=== PATIENT | female | born 1990 | race Caucasian/White ===

== ENCOUNTER 2021-02-12 11:45 | Emergency (ER) | payer OTHER ==
[~2021-02-12] VITALS: Ht 160 cm; Wt 66.2 kg
[2021-02-12 11:48] VITALS: BP 136/78
--- NOTE | 2021-02-12 11:50 | NUR ---
Patient ambulated to bed 12. RN evaluating the patient at bedside.
--- NOTE | 2021-02-12 11:55 | NUR ---
EMT at bedside for wound irrigation
--- NOTE | 2021-02-12 11:55 | NUR ---
31 y/o F brought in from the gym by mother with c/c right 5th digit finger pain. Patient reports she smashed her right 5th digit between a hyperextension machine and a 70lb dumbbell. Patient reports EMS was called out and bleeding controlled by gauze pad/roll by fire prior to arrival. Patient denies any medications prior to arrival. 0.5" laceration noted to left of nail bed of right 5th digit. Patient reports 9/10 pain and is requesting medication at this time; Dr. Espana made aware. PMH/Sx/Meds: Denies NKA
--- NOTE | 2021-02-12 12:00 | NUR ---
X-ray at bedside.
--- NOTE | 2021-02-12 12:15 | NUR ---
Dr. Espana is evaluating patient at bedside.
[2021-02-12] MEDS ORDERED: ONDANSETRON 4 MG ODT PO ONE (12:20)
[2021-02-12] MEDS ORDERED: BUPIVACAINE-MPF 0.5% 30 ML VIAL INJ ONE (12:20)
[2021-02-12] MEDS ORDERED: fentaNYL citrate 0.05 MG/ML VIAL IM ONE (12:20)
--- NOTE | 2021-02-12 12:43 | NUR ---
Dr. Espana is at bedside for suture care.
--- NOTE | 2021-02-12 12:50 | NUR ---
Patient ambulated to restroom with steady/even gait.
--- NOTE | 2021-02-12 12:54 | NUR ---
Patient ambulated back onto bed; presents in tears with mother at bedside. Patient reports pain remains 9/10, states "my body feels more relaxed but the finger pain is still there."
[2021-02-12] MEDS ORDERED: BACITRACIN OINT 500 UNITS/GM PKT TP ONE (13:45)
--- NOTE | 2021-02-12 13:45 | NUR ---
Patient denies any pain or nausea at this time. Mother remains at bedside. Bed locked in lowest position, side rails x 1, call light in reach.
[2021-02-12] MEDS ORDERED: ACET-8386 PO ×3 (13:48→15:18)
[2021-02-12] MEDS ORDERED: IBUP-2213 PO (13:48)
[2021-02-12] MEDS ORDERED: CEPH500T PO (13:48)
--- NOTE | 2021-02-12 13:48 | NUR ---
EMT at bedside for splint application.
[2021-02-12 14:01] VITALS: BP 126/72
--- NOTE | 2021-02-12 14:01 | NUR ---
Patient discharged with v/s stable. Written and verbal after care instructions given and explained. Patient alert, oriented and verbalized understanding of instructions. Ambulatory with steady gait. All questions addressed prior to discharge. ID band removed. Patient advised to follow up with PMD. Rx of Cephalexin, Ibuprofen, Hydrocodone/Acetaminophen given. Patient educated on indication of medication including possible reaction and side effects. Opportunity to ask questions provided and answered.
== END 2021-02-12 14:01 | disposition home or self-care (01) ==
LOC: MED 11:45
DX: S62.636B Displaced fracture of distal phalanx of right little finger, initial encounter for open fracture (principal); Y93.89 Activity, other specified; Y92.89 Other specified places as the place of occurrence of the external cause; Y99.8 Other external cause status
CPT/HCPCS: 12001; 73140; 96372; 99283; J3010; J3490; Q0162

== ENCOUNTER 2021-02-13 10:29 | Emergency (ER) | payer OTHER ==
[~2021-02-13] VITALS: Ht 160 cm; Wt 66.2 kg
[~2021-02-13 10:29] MED LIST: ACET-8386 PO; CEPH500T PO; IBUP-2213 PO
[2021-02-13 10:32] VITALS: BP 123/73
--- NOTE | 2021-02-13 10:38 | NUR ---
31 y.o female presents to the ED to recheck broken right pinky. pain of 5/10 cramping. pt requesting a drElmer note. patient took pain medication 30minutes ago of hydrocodone with acetaminophen and antibx. PMH: N/A Allergies: NKA
--- NOTE | 2021-02-13 10:58 | NUR ---
ERMD at bedside for examination of patient
--- NOTE | 2021-02-13 11:10 | NUR ---
at bedside examining wound on right pinky finger.
[2021-02-13] MEDS: BACITRACIN OINT 500 UNITS/GM PKT TP ONE (11:20)
[2021-02-13 11:42] VITALS: BP 110/79
--- NOTE | 2021-02-13 11:42 | NUR ---
Patient discharged with v/s stable. Written and verbal after care instructions given and explained. Patient verbalized understanding. ID band removed. Ambulatory with steady gait. All questions addressed prior to discharge. Advised to follow up with PMD.
== END 2021-02-13 11:42 | disposition home or self-care (01) ==
LOC: MED 10:29
DX: S61.216D Laceration without foreign body of right little finger without damage to nail, subsequent encounter (principal); Z48.00 Encounter for change or removal of nonsurgical wound dressing; X58.XXXA Exposure to other specified factors, initial encounter
CPT/HCPCS: 99282